=== PATIENT | male | born 1965 | race Two or more races ===

== ENCOUNTER 2018-12-18 22:58 | Emergency (ER) | payer OTHER ==
[~2018-12-18] VITALS: Ht 167.6 cm; Wt 86.0 kg
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
--- NOTE | 2018-12-18 23:29 | NUR ---
PT IN XRAY NOW.
[2018-12-18] MEDS ORDERED: HYDROcodone/APAP 5/325 TABLET PO ONE (23:30)
[2018-12-18] MEDS ORDERED: HYDROcodone/APAP 5/325 TABLET ONE (23:33)
[2018-12-18 23:43] VITALS: BP 122/81
--- NOTE | 2018-12-18 23:43 | NUR ---
pt medicated per emar for pain. pt tolerated well.
--- NOTE | 2018-12-19 00:39 | NUR ---
PT GIVEN DC INSTRUCTIONS AND SCRIPT. PT EDUCATED REGARDING DC MEDICATION. PT'S AOX4. RESPS EVEN AND UNLABORED. NO ACUTE DISTRESS AT DC.
== END 2018-12-19 00:40 | disposition home or self-care (01) ==
LOC: ED 12-19 00:38
DX: S20.219A Contusion of unspecified front wall of thorax, initial encounter (principal); M25.512 Pain in left shoulder; M54.9 Dorsalgia, unspecified; W22.8XXA Striking against or struck by other objects, initial encounter; Y93.89 Activity, other specified; Y92.488 Other paved roadways as the place of occurrence of the external cause; Y99.8 Other external cause status
CPT/HCPCS: 99283